=== PATIENT | male | born 1980 | race Caucasian/White ===

== ENCOUNTER 2019-03-08 02:59 | Inpatient (IN) | payer SELFPAY ==
[~2019-03-08] VITALS: Ht 180.3 cm; Wt 119.2 kg
[2019-03-08] MEDS ORDERED: MUCINEX FAST-M180 M2 PO (04:11)
[2019-03-08 04:38] VITALS: BP 116/80; PULSE 98; TEMP 98.3
--- NOTE | 2019-03-08 04:43 | NUR ---
PT ARRIVED TO MEDICAL UNIT. ORIENTED TO STAFF AND ROOM. REPORTS NO PAIN. PT ON 2.5L VIA NC, SAT STABLE. REPORTS FEELING BETTER THAN EARLIER. VSS. IV FLUSHES WELL, NO REDNESS, NO SWELLING. ASSESSMENT COMPLETE- NO CONCERNS. BILATERAL LOBE BASES HAVE FINE CRACKLES. NO NEEDS AT THIS TIME. CALL LIGHT INREACH.
--- NOTE | 2019-03-08 07:00 | NUR ---
Report received from DION Christina. Pt awake and alert, resting in bed, denies needs, will continue to monitor.
--- NOTE | 2019-03-08 07:01 | NUR ---
REPORT GIVEN TO THEODORE RN PT REPORTS NO NEEDS
[2019-03-08 07:05] LABS: BASO # 0.1 (0.0-0.2); BASO % 0.5 % (0.0-2.0); EOS # 0.2 (0.0-0.7); EOS % 1.1 % (0-4.0); GRAN # 14.6 (1.4-6.5); GRAN % 78.1 % (42.2-75.2); HEMATOCRIT 40.7 % (42.0-52.0); HEMOGLOBIN 14.2 g/dl (13.5-18.0); LYMPH # 2.5 (1.2-3.4); LYMPH % 13.2 % (20.0-51.0); MEAN CELL VOLUME 89 fl (80.0-100.0); MEAN CORPUSCULAR HEMOGLOBIN 31 pg (27.0-31.0); MEAN CORPUSCULAR HGB CONC 35 g/dl (33.0-37.0); MEAN PLATELET VOLUME 10.4 fl (7.4-10.4); MONO # 1.3 (0.1-0.6); MONO % 6.7 % (1.7-9.3); PLATELET COUNT 304 K/mm3 (130-400); RED BLOOD COUNT 4.59 M/mm3 (4.20-5.60); REDCELL DISTRIBUTION WIDTH-CV 12.7 % (11.5-14.5)
[2019-03-08 07:17] VITALS: BP 146/87; PULSE 104; TEMP 97.9
[2019-03-08 07:17] LABS: ALBUMIN 3.5 gm/dL (3.5-5.0); BILIRUBIN,TOTAL 0.5 mg/dL (0.0-1.0); CALCIUM 8.6 mg/dL (8.4-10.2); CREATININE, serum 0.62 (0.66-1.25); MAGNESIUM 1.7 mg/dL (1.6-2.3); TOTAL PROTEIN 6.9 gm/dL (6.4-8.2)
--- NOTE | 2019-03-08 10:00 | NUR ---
Assessment charted. Pt resting in bed, feeling well, deneis any pain or shortness of breath. IVF to R A/C. Taking PO well. Will continue to monitor.
[2019-03-08 11:53] VITALS: BP 138/76; PULSE 101; TEMP 98.2
[2019-03-08 12:39] LABS: TRICYCLIC ANTIDEPRESS URINE NEGATIVE
[2019-03-08] MEDS ORDERED: ZITHROMAX 250M250 MG PO (13:22)
[2019-03-08] MEDS ORDERED: PROAIR HFA0.09 MG/AC IH (13:22)
--- NOTE | 2019-03-08 15:45 | NUR ---
Discharge teaching completed at this time. INT d/c'd, tip intact. Answered all qeustions, discharge packet reviewed, scripts sent to pharmacy, f/u appointment revieweed. Pt left wtih all belongings, escorted out by myself. Girlfriend to drive home, criteria met.
--- NOTE | 2019-03-08 16:06 | NUR ---
OMKAR attempted to meet with the patient. The patient discharged back home today, 03/08. The patient was set up at the [facility]. Financial couselor, Valeriy, was able to meet with the patient and completed a financial assistance application. No additional needs at this time.
== END 2019-03-08 15:46 | disposition home or self-care (01) | DRG 871 ==
LOC: MEDICAL 02:59
PROVIDERS: Nurse Practitioner Family; ADMIT Family Medicine
DX: A41.9 Sepsis, unspecified organism (principal); J18.9 Pneumonia, unspecified organism; J96.01 Acute respiratory failure with hypoxia; R65.20 Severe sepsis without septic shock; F17.210 Nicotine dependence, cigarettes, uncomplicated; E87.6 Hypokalemia; F12.10 Cannabis abuse, uncomplicated
CPT/HCPCS: 99222-AI; J1650

== ENCOUNTER 2021-08-05 11:18 | Emergency (ER) | payer BC ==
[~2021-08-05] VITALS: Ht 180.3 cm; Wt 118.2 kg
[~2021-08-05 11:18] MED LIST: MUCINEX FAST-M180 M2 PO; PROAIR HFA0.09 MG/AC IH; ZITHROMAX 250M250 MG PO
[2021-08-05 11:35] VITALS: TEMP 99.5
[2021-08-05 13:31] VITALS: BP 146/93; PULSE 97
== END 2021-08-05 13:32 | disposition home or self-care (01) ==
LOC: COL.ER 11:18
DX: J06.9 Acute upper respiratory infection, unspecified (principal); F17.200 Nicotine dependence, unspecified, uncomplicated; Z20.822 Contact with and (suspected) exposure to COVID-19

== ENCOUNTER 2022-05-15 01:12 | Inpatient (IN) | payer BC ==
[2022-05-15] VITALS (8 sets, daily range): BP systolic 128–160; BP diastolic 82–122; PULSE 93–118; TEMP 97.8–98.7
[~2022-05-15] VITALS: Ht 177.8 cm; Wt 135.2 kg
[2022-05-15 01:48] LABS: HEMATOCRIT 47.5 % (42.0-52.0); HEMOGLOBIN 15.8 g/dl (13.5-18.0); MEAN CELL VOLUME 90 fl (80.0-100.0); MEAN CORPUSCULAR HEMOGLOBIN 30 pg (27-31); MEAN CORPUSCULAR HGB CONC 33 g/dl (33.0-37.0); MEAN PLATELET VOLUME 10.5 fl (7.4-10.4); PLATELET COUNT 377 K/mm3 (130-400); RED BLOOD COUNT 5.27 M/mm3 (4.20-5.60); REDCELL DISTRIBUTION WIDTH-CV 13.6 % (11.5-14.5)
[2022-05-15 02:08] LABS: ALBUMIN 3.8 gm/dL (3.5-5.0); BILIRUBIN,TOTAL 0.7 mg/dL (0.2-1.2); CALCIUM 9.5 mg/dL (8.4-10.2); CREATININE, serum 1.37 mg/dL (0.72-1.25); POTASSIUM 3.5 mmol/L (3.5-4.5); TOTAL PROTEIN 7.7 gm/dL (6.2-8.1)
[2022-05-15 02:13] LABS: TROPONIN-I 0.024 ng/mL (0.00-0.033)
[2022-05-15 02:43] LABS: BAND 1 % (0-10); BASOPHIL 1 % (0-2); EOSINOPHIL 1 % (0-4); LYMPHOCYTE 33 % (20.0-51.0); NEUTROPHILS 58 % (42.0-75.2)
[2022-05-15 02:44] LABS: PLATELET ESTIMATE NORMAL (NORMAL)
--- NOTE | 2022-05-15 04:40 | NUR ---
PT ARRIVES FROM ED PER CART TO ROOM 328. ABLE TO WALK FROM CART TO BED WITHOUT PROBLEM. IS ALERT AND ORIENTED X4. HAS INT TO LFA, FLUSHES WELL. INSTRUCTED ON I/O, URINAL PROVIDED. ADMISSION QUESTIONS COMPLETED.
--- NOTE | 2022-05-15 06:40 | NUR ---
UA OBTAINED. 2ND DOSE OF PO POTASSIUM GIVEN. RESP VIRUS PANEL OBTAINED EARLIER, PENDING RESULTS.
[2022-05-15 06:43] LABS: C-REACTIVE PROTEIN 1.84 mg/dL (0.00-0.50); CALCIUM 9.2 mg/dL (8.4-10.2); CREATININE, serum 1.24 mg/dL (0.72-1.25); MAGNESIUM 2.1 mg/dL (1.6-2.6); PHOSPHOROUS 4.3 mg/dL (2.3-4.7); POTASSIUM 3.7 mmol/L (3.5-4.5)
[2022-05-15 06:59] LABS: COLLECTION METHOD CLEAN CATCH
[2022-05-15 07:03] LABS: THYROID STIMULATING HORMONE 2.78 uIU/mL (0.350-4.940)
[2022-05-15 07:08] LABS: TROPONIN-I 0.034 ng/mL (0.00-0.033)
[2022-05-15 07:19] LABS: PH 5 (5-8); SQUAMOUS EPITHELIAL None Seen /hpf (0-10); URINE APPEARANCE Clear (CLEAR/HAZY); URINE BACTERIA None Seen /hpf (NONE SEEN); URINE BLOOD 1+ (NEGATIVE); URINE COLOR Straw (YELLOW); URINE GLUCOSE Negative (NEGATIVE); URINE KETONE Negative (NEGATIVE); URINE NITRATE Negative (NEGATIVE); URINE PROTEIN(semi-quant) 1+ (NEGATIVE); URINE RBC 0-2 /hpf (0-2); URINE UROBILINOGEN Negative (NEGATIVE)
--- NOTE | 2022-05-15 08:51 | NUR ---
PT NPO PER DR KIRKPATRICK ORDER. NOTIFED OF PT ADMIT FOR NEW CHF AND ELVATED TROP. PT DID HAVE JUICE W KCL THIS AM PRIOR TO NOTIFYING. OTHERWISE NPO ALREADY.
--- NOTE | 2022-05-15 09:13 | NUR ---
OMKAR met with the patient to discuss discharge plan. The patient lives in [place] with his mother, Ramakrishna (ph#[phone]). He reports independence with ADLs and does not have any DME. The patient states that he does not have a PCP. He was interested in obtaining a list of local clinics and providers. OMKAR provided him with that list. He receives his medications from [facility] and the [facility] in . He reports no difficulties obtaining his meds. The patient does not have a DPOA-HC and he was not interested in completing one at this time. He states that he is and has four children. One child is over the age of 18. He states that he does not have a relationship with this child though. OMKAR informed him how she would still be his legal next of kin. The patient verbalized understanding. The patient plans to return home with his mother upon discharge. No additional needs at this time. *Discharge plan: home with mother*
--- NOTE | 2022-05-15 09:18 | NUR ---
PT DENIES CHEST PAIN OCC SOA NO LIGHT HEAD OR DIZZY. NPO. POC DISCUSSED. PT V/U OF CARES. CALL LIGHT WI REACH.
--- NOTE | 2022-05-15 09:22 | NUR ---
Initial visit; Patient thanked Mortgage Branch Manager for looking in on him and offering God's blessings. Patient states he is doing "ok" and appeared uncomfortable talking. Mortgage Branch Manager wished him well.
--- NOTE | 2022-05-15 12:46 | NUR ---
POC DISCUSSED. WILL DIARHESIS OVER WEEKEND AND DO HEART CATH WEDNESDAY. DIET ORDERED. DENIES CHEST PAIN.
[2022-05-15 15:47] LABS: TRICYCLIC ANTIDEPRESS URINE NEGATIVE
--- NOTE | 2022-05-15 15:53 | NUR ---
UPDATED PAULO WITH DR ROJAS ON PT UA POSTIVE FOR METH AND AMPHETAMINE, ORDERS WERE PLACED FOR HEART CATH TO BE DONE WEDNESDAY AM.
--- NOTE | 2022-05-15 17:24 | NUR ---
PT REPORTS FEELING SOA AFTER DOXY? VSS, NO REDNESS OR ITCHING. NO FEVER. WILL MONITOR AND PASS ALONG.
--- NOTE | 2022-05-15 20:30 | NUR ---
PT SITTING IN CHAIR AT BEDSIDE. REPORTS INT TO LFA IS PAINFUL TO TOUCH, SLIGHTLY REDDENED. VOIDING PER URINAL. REMAINS ON FLUID RESTRICTION. DENIES PAIN AT THIS TIME.
--- NOTE | 2022-05-15 22:30 | NUR ---
HELD NITROBID OINTMENT, PT B/P WNL, DENIES CHEST PAIN. MARY SALAZAR NOTIFIED.
--- NOTE | 2022-05-16 00:10 | NUR ---
STARTED NEW INT TO RT WRIST WITH #20 INSYTE ON FIRST ATTEMPT. IV LASIX GIVEN. DC'D INT FROM LFA, ANGIOCATH INTACT.
[2022-05-16 04:00] VITALS: BP 131/87; PULSE 99; TEMP 97.6
--- NOTE | 2022-05-16 06:15 | NUR ---
PT AWAKE. IV ANTIBIOTIC INFUSING WITHOUT PROBLEM. CUP OF ICE PROVIDED.
[2022-05-16 07:04] LABS: BASO # 0.1 K/mm3 (0.0-0.2); BASO % 0.8 % (0.0-2.0); EOS # 0.3 K/mm3 (0.0-0.7); EOS % 2.1 % (0.0-4.0); GRAN # 9.3 K/mm3 (1.4-6.5); GRAN % 64.7 % (42.2-75.2); HEMATOCRIT 44.7 % (42.0-52.0); LYMPH # 3.7 K/mm3 (1.2-3.4); MEAN CELL VOLUME 90 fl (80.0-100.0); MEAN CORPUSCULAR HEMOGLOBIN 30 pg (27-31); MEAN CORPUSCULAR HGB CONC 34 g/dl (33.0-37.0); MEAN PLATELET VOLUME 11.1 fl (7.4-10.4); MONO # 0.9 K/mm3 (0.1-0.6); MONO % 6.1 % (1.7-9.3); PLATELET COUNT 346 K/mm3 (130-400); RED BLOOD COUNT 4.96 M/mm3 (4.20-5.60); REDCELL DISTRIBUTION WIDTH-CV 13.4 % (11.5-14.5)
[2022-05-16 07:28] LABS: CALCIUM 8.8 mg/dL (8.4-10.2); CREATININE, serum 1.16 mg/dL (0.72-1.25); POTASSIUM 3.3 mmol/L (3.5-4.5)
[2022-05-16 08:03] VITALS: BP 136/105; PULSE 109; TEMP 98.9
--- NOTE | 2022-05-16 10:30 | NUR ---
Initial visit attempt; Patient sleeping, Bottom Saw Operator left offering God's blessings and information regarding the availability of Spiritual Care at our hospital.
[2022-05-16 12:22] VITALS: BP 126/95; PULSE 98; TEMP 98
--- NOTE | 2022-05-16 13:16 | NUR ---
SW attempted to meet with patient but was in the restroom at the time. Patient is scheduled for a cath on Wednesday and may possibly need a life vest.
[2022-05-16 16:55] VITALS: BP 113/77; PULSE 104; TEMP 98.7
[2022-05-16 19:23] VITALS: BP 133/80; PULSE 96; TEMP 98.2
--- NOTE | 2022-05-16 22:35 | NUR ---
PATIENT IN BED RESTING, AWAKENS TO SPEECH. DENIES PAIN. 2+ EDEMA TO BLE. INT R WRIST PATENT AND FLUSHED. NITRO-BID TO R CHEST.
[2022-05-16 23:39] VITALS: BP 140/90; PULSE 102; TEMP 98.5
[2022-05-17 03:48] VITALS: BP 130/89; PULSE 100; TEMP 97.8
[2022-05-17 07:34] VITALS: BP 134/91; PULSE 100; TEMP 97.8
[2022-05-17 07:47] LABS: BASO # 0.1 K/mm3 (0.0-0.2); BASO % 0.7 % (0.0-2.0); EOS # 0.4 K/mm3 (0.0-0.7); EOS % 3.1 % (0.0-4.0); GRAN # 8.9 K/mm3 (1.4-6.5); GRAN % 63.3 % (42.2-75.2); HEMATOCRIT 43.4 % (42.0-52.0); HEMOGLOBIN 14.7 g/dl (13.5-18.0); LYMPH # 3.7 K/mm3 (1.2-3.4); LYMPH % 26.1 % (20.0-51.0); MEAN CELL VOLUME 90 fl (80.0-100.0); MEAN CORPUSCULAR HEMOGLOBIN 31 pg (27-31); MEAN CORPUSCULAR HGB CONC 34 g/dl (33.0-37.0); MEAN PLATELET VOLUME 10.6 fl (7.4-10.4); MONO # 0.9 K/mm3 (0.1-0.6); MONO % 6.4 % (1.7-9.3); PLATELET COUNT 350 K/mm3 (130-400); RED BLOOD COUNT 4.82 M/mm3 (4.20-5.60); REDCELL DISTRIBUTION WIDTH-CV 13.2 % (11.5-14.5)
[2022-05-17 08:04] LABS: CALCIUM 8.9 mg/dL (8.4-10.2); CREATININE, serum 1.19 mg/dL (0.72-1.25); POTASSIUM 3.7 mmol/L (3.5-4.5)
[2022-05-17 12:22] VITALS: BP 107/82; PULSE 83; TEMP 97.9
[2022-05-17 16:41] VITALS: BP 133/101; PULSE 94; TEMP 98.7
[2022-05-17 21:17] VITALS: BP 121/73; PULSE 94; TEMP 98.7
--- NOTE | 2022-05-17 22:00 | NUR ---
ALERT AND OX4. IND UP IN ROOM. DENIES CHEST PAIN SOA OR DIZZY. SHOWERED. NPO AT MIDNIGHT FOR HEART CATH IN AM. POC DISCUSSED. CONSENTED.
[2022-05-18 00:33] VITALS: BP 112/78; PULSE 98; TEMP 97.4
[2022-05-18 04:48] VITALS: BP 113/78; PULSE 103; TEMP 97.4
--- NOTE | 2022-05-18 05:28 | NUR ---
EKG DONE, 1ST DEGREE BLOCK. NPO FOR HEART CATH. IV FLUIDS HUNG. NITRO PASTE TO CHEST. NO CHEST PAIN OR DISCOMFORT OVERNIGHT.
[2022-05-18 06:20] LABS: BASO # 0.1 K/mm3 (0.0-0.2); BASO % 0.8 % (0.0-2.0); EOS # 0.5 K/mm3 (0.0-0.7); EOS % 3.4 % (0.0-4.0); GRAN # 8.6 K/mm3 (1.4-6.5); GRAN % 62.6 % (42.2-75.2); HEMATOCRIT 47.8 % (42.0-52.0); HEMOGLOBIN 15.5 g/dl (13.5-18.0); LYMPH # 3.8 K/mm3 (1.2-3.4); LYMPH % 28.1 % (20.0-51.0); MEAN CELL VOLUME 92 fl (80.0-100.0); MEAN CORPUSCULAR HEMOGLOBIN 30 pg (27-31); MEAN CORPUSCULAR HGB CONC 32 g/dl (33.0-37.0); MEAN PLATELET VOLUME 10.6 fl (7.4-10.4); MONO # 0.7 K/mm3 (0.1-0.6); MONO % 4.9 % (1.7-9.3); PLATELET COUNT 366 K/mm3 (130-400); RED BLOOD COUNT 5.18 M/mm3 (4.20-5.60); REDCELL DISTRIBUTION WIDTH-CV 13.3 % (11.5-14.5)
--- NOTE | 2022-05-18 07:30 | NUR ---
CALL RECIEVED FROM HIGH LIFT DRIVER. BETA SARWAT HELD, WILL ADMIN AFTER CARDIAC CATH, PATIENTS VITALS STABLE. NEW IV STARTED IN L HAND, 20G. HOOKED UP TO PRE-OP FLUID.
[2022-05-18 07:41] VITALS: BP 119/78; PULSE 101; TEMP 97.7
--- NOTE | 2022-05-18 12:33 | NUR ---
DORITA DID NOT TOLERATE IV POTASSIUM REPLACEMENT. DR SILVA NOTIFIED AND OKAYED PATIENT GETTING PO REPLACEMENT AFTER HEART CATH THIS AFTERNOON.
[2022-05-18 13:00] VITALS: BP 129/104; PULSE 104; TEMP 97.9
--- NOTE | 2022-05-18 16:00 | NUR ---
PATIENT STATED HE WOULD LIKE TO LEAVE AMA. ENCOURAGED PATIENT TO STAY FOR TREATMENT. I EDUCATED HIM ON THE RISKS OF LEAVING AND THE CARE AND TREATMENT HE WOULD RECIEVE IF STAYING. PATIENT DOES NOT SEEM TO GRASP THE REALITY OF HIS SITUATION AND CONDITION. OSWALDO IN CARDIOLOGY TEAM NOTIFIED, SHE PUT FOLLOW UP IN FOR PATIENT. DR SILVA NOTIFIED AND HAD A LENGTHY CONSVERSATION WITH THE PATIENT REGARDING THE RISKS OF LEAVING AND BENEFITS OF STAYING. WELL SPEAKING TO HIM ABOUT THE SERIOUSNESS OF HIS SITUATION. AFTER EVERYTHING PATIENT STILL WANTED TO LEAVE AGAINST MEDICAL ADVICE. FORME SIGNED. PHYSICIANS, CHARGE NURSE AND TRAY SETTER AWARE.
[2022-05-18] MEDS ORDERED: NITROSTAT0.4 MG/TAB SL (16:43)
[2022-05-18] MEDS ORDERED: LASIX 40MG TABL40 MG PO (16:44)
[2022-05-18] MEDS ORDERED: ASPIRIN E.C. 8181 MG PO (16:44)
[2022-05-18] MEDS ORDERED: ZESTRIL 10MG10 MG PO (16:44)
[2022-05-18] MEDS ORDERED: COREG12.5 MG PO (16:44)
== END 2022-05-18 16:59 | disposition left against medical advice (07) | DRG 291 ==
LOC: COL.ER 01:12 → SURG 04:00
PROVIDERS: Emergency Medicine; Nurse Practitioner Family; ADMIT Family Medicine
DX: I11.0 Hypertensive heart disease with heart failure (principal); I50.21 Acute systolic (congestive) heart failure; R65.10 Systemic inflammatory response syndrome (SIRS) of non-infectious origin without acute organ dysfunction; R94.31 Abnormal electrocardiogram [ECG] [EKG]; E87.6 Hypokalemia; F15.10 Other stimulant abuse, uncomplicated; I42.8 Other cardiomyopathies; F17.210 Nicotine dependence, cigarettes, uncomplicated; F12.10 Cannabis abuse, uncomplicated; Z79.82 Long term (current) use of aspirin
CPT/HCPCS: 99223-AI; J0696; J1940; J3480; Q9967